=== PATIENT | male | born 1985 | race Caucasian/White ===

== ENCOUNTER → 2019-04-16 10:39 | Outpatient (BNVA) | payer SELFPAY | PROVIDERS: Family Provider Nurse Practitioner; PCP Nurse Practitioner; Visit Provider Nurse Practitioner | DX: J43.2 Centrilobular emphysema (principal); R05 Cough; M54.9 Dorsalgia, unspecified; E86.0 Dehydration | CPT/HCPCS: 71046; 81003; 87081; 87804; 87880 ==

== ENCOUNTER 2019-08-03 10:12 | Outpatient (CLI) | payer SELFPAY ==
--- NOTE | 2019-08-03 10:24 | MR_ITS ---
WS: [id number] MRI LUMBAR SPINE NONCONTRAST TECHNIQUE: Sagittal T1, T2 and STIR imaging. Axial T1 and T2 imaging. 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 No acute compression. No high-grade central canal stenosis. Stable small left pericentral protrusion T12-L1 with narrowing of the left subarticular recess. Mild left greater than right foraminal narrowing. L1-L2: Small left subarticular protrusion. Narrowing of the left subarticular recess. Mild left juan inal narrowing. Right foramen is patent. Mild facet arthropathy. L2-L3: Mild annular bulging. Small right foraminal protrusion with mild right foraminal narrowing. Le ft foramen and spinal canal are patent. Mild facet arthropathy. L3-L4: Mild annular bulging with slight effacement of ventral thecal sac. Narrowing of the subarticul ar recess bilaterally. Small right foraminal protrusion with mild right foraminal narrowing. Left for amen is patent. Mild facet arthropathy. Mild central canal stenosis. L4-L5: Mild annular bulging. Spinal canal and foramen are patent. Mild facet arthropathy. L5-S1: Small left pericentral protrusion with slight effacement of ventral thecal sac. Spinal canal a nd foramen are patent. Mild facet arthropathy. Small disc protrusion at L3-4 has progressed since 2018. Otherwise no significant interval changes. MR/MR lumbar spine wo con* [id number] IMPRESSION: 1. Mild lumbar curve. No acute compression. No high-grade central canal stenos is. 2. Mild central canal stenosis L3-4 with a small central disc protrusion. 3. Small right foraminal protrusions L2-3 and L3-4 with mild right foraminal n arrowing. 4. Stable left subarticular protrusion T12-L1 and L1-L2 with narrowing of the left subarticular recess and left foraminal narrowing. 5. Left pericentral protrusion L5-S1 without significant spinal canal or juan inal narrowing.
--- NOTE | 2019-08-03 11:00 | XR_ITS ---
WS: [id number] LUMBAR SPINE FLEXION AND EXTENSION TECHNIQUE: 3 views of the lumbar spine: Lateral neutral, flexion, and extension views. CLINICAL INFORMATION: low back pain COMPARISON: None. FINDINGS: Normal lumbar alignment on the neutral view. No instability on the flexion and extension views. Disc space heights and vertebral body heights well -preserved. Mild facet arthropathy L5-S1. XR/XR lumbar spine f/e only [id number] IMPRESSION: No instability on flexion-extension.
== END 2019-08-03 10:13 | disposition home or self-care (01) ==
LOC: RADWPI 10:18
PROVIDERS: Family Provider Nurse Practitioner; PCP Nurse Practitioner; Visit Provider Licensed Practical Nurse
DX: M51.17 Intervertebral disc disorders with radiculopathy, lumbosacral region (principal); M48.07 Spinal stenosis, lumbosacral region; M51.26 Other intervertebral disc displacement, lumbar region
CPT/HCPCS: 72120; 72148

== ENCOUNTER → 2019-08-04 11:52 | Outpatient (BNVA) | payer SELFPAY | PROVIDERS: Family Provider Nurse Practitioner; PCP Nurse Practitioner; Visit Provider Nurse Practitioner Family | DX: R42 Dizziness and giddiness (principal); Z13.6 Encounter for screening for cardiovascular disorders; Z79.899 Other long term (current) drug therapy; R53.83 Other fatigue; E55.9 Vitamin D deficiency, unspecified | CPT/HCPCS: 80053; 80061; 81001; 82306; 83036; 84443; 85025 ==

== ENCOUNTER → 2019-08-30 09:49 | Outpatient (BNVA) | payer SELFPAY | PROVIDERS: Family Provider Nurse Practitioner; PCP Nurse Practitioner; Visit Provider Specialist | DX: M79.604 Pain in right leg (principal) | CPT/HCPCS: 95886; 95887; 95908; 95909 ==

== ENCOUNTER → 2020-03-20 11:57 | Outpatient (BNVA) | payer SELFPAY | PROVIDERS: Family Provider Nurse Practitioner; PCP Nurse Practitioner; Visit Provider Nurse Practitioner Family | DX: M19.90 Unspecified osteoarthritis, unspecified site (principal) | CPT/HCPCS: 73562 ==

== ENCOUNTER → 2020-08-29 14:36 | Outpatient (BNVA) | payer OTHER, SELFPAY | PROVIDERS: Family Provider Nurse Practitioner; PCP Nurse Practitioner Family; Visit Provider Nurse Practitioner Family | DX: Z20.822 Contact with and (suspected) exposure to COVID-19 (principal) | CPT/HCPCS: 87635 ==